=== PATIENT | male | born 2000 | race Caucasian/White ===

== ENCOUNTER 2021-10-26 10:57 | Emergency (ER) | payer OTHER, SELFPAY ==
[2021-10-26 11:07] VITALS: BP 143/91; PULSE 79; RESP 18; O2SAT 100; BMI 29.5
--- NOTE | 2021-10-26 11:11 | DI.RAD.S_ITS ---
PROCEDURE: XR FINGER LT MIN 2V INDICATIONS: Smashed left index finger TECHNIQUE: AP hand, 2 views of the 2nd digit acquired. COMPARISON: None. FINDINGS: Bones: There is a mildly comminuted fracture in the tuft of the 2nd distal phalanx. No suspicious bony lesions. Soft tissues: No radiopaque foreign bodies. No suspicious soft tissue calcifications. IMPRESSION: 1. Comminuted fracture of the 2nd distal phalanx. Dictated by: Marc Purcell M.D. on 10/26/2021 at 10:27 Approved by: Marc Purcell M.D. on 10/26/2021 at 10:35
[2021-10-26] MEDS: IBUPROFEN 400 MG TABLET 800 MG PO (13:38)
--- NOTE | 2021-10-26 14:14 | ED_ITS ---
HPI - Extremity Injury (Upper) <Vy Boyer PA-C - Last Filed: 10/26/21 14:21> General Chief Complaint: Extremity Injury, Upper Stated Complaint: LT FINGER POSS BROKEN Time Seen by Provider: 10/26/21 13:05 Source: patient Mode of arrival: Ambulatory Limitations: no limitations History of Present Illness HPI narrative: 21-year-old male with no reported past medical history presents to the ED status post a left index finger injury sustained yesterday. Patient states that he was chopping wood, when the wooden handle and the wood he was cutting crushed the tip of his left index finger. Patient denies numbness, tingling, weakness. Patient is able to range his finger. Patient's tetanus was 2 years ago. Patient endorses taking ibuprofen for pain control. Patient is right-hand domin ant. Related Data Allergies Allergy/AdvReac Type Severity Reaction Status Date / Time No Known Drug Allergies Allergy Verified 10/26/21 11:07 Review of Systems <Vy Boyer PA-C - Last Filed: 10/26/21 14:21> Review of Systems ROS Unobtainable: All systems reviewed & are unremarkable except as noted in HPI and below Constitutional Constitutional: Denies chills, Denies fatigue, Denies fever(s), Denies frequent falls, Denies lethargy and Denies weakness Eyes Eyes: Denies change in vision, Denies eye discharge, Denies irritation and Denies loss of vision ENT Ears, Nose, Mouth, and Throat: Denies change in voice, Denies dizziness, Denies neck pain, Denies sore throat and Denies throat swelling Cardiovascular Cardiovascular: Denies chest pain, Denies irregular heart rhythm, Denies lightheadedness, Denies palpitations, Denies dyspnea, Denies dyspnea on exertion and Denies orthopnea Respiratory Respiratory: Denies cough, Denies dyspnea, Denies dyspnea on exertion and Denies wheezing Gastrointestinal Gastrointestinal: Denies abdominal pain, Denies change in bowel habits, Denies diarrhea, Denies nausea and Denies vomiting Genitourinary Genitourinary: Denies hematuria, Denies flank pain, Denies urinary incontinence and Denies urinary urgency Musculoskeletal Musculoskeletal: Denies back pain, Denies muscle weakness, Denies neck pain, Denies numbness and Denies tingling Comments: Left index finger injury, pain. No numbness, tingling, weakness. Integumentary/Breasts Skin/Breast: Denies pruritus, Denies erythema, Denies rash and Denies wounds Neurologic Neurologic: Denies behavioral changes, Denies confusion, Denies dizziness, Denies frequent falls, Denies loss of vision, Denies numbness, Denies tingling and Denies weakness Psychiatric Psychiatric: Denies anxiety, Denies behavioral changes, Denies confusion, Denies depression, Denies homicidal ideation and Denies suicidal ideation Endocrine Endocrine: Denies fatigue, Denies flushing and Denies palpitations Hematologic/Lymphatic Hematologic/Lymphatic: Denies easy bruising Allergic/Immunologic Allergic/Immunologic: Denies urticaria, Denies throat swelling and Denies wheezing Patient History <Vy Boyer PA-C - Last Filed: 10/26/21 14:21> Social History Smoking Status: Current every day smoker Smoking Status: Current every day smoker tobacco type: cigarettes alcohol intake frequency: 3 or more drinks per day Substance Use Type: marijuana Exam <Vy Boyer PA-C - Last Filed: 10/26/21 14:21> Initial Vital Signs Initial Vital Signs: Vital Signs Pulse Rate 79 10/26/21 11:07 Respiratory Rate 18 10/26/21 11:07 Blood Pressure 143/91 H 10/26/21 11:07 Pulse Oximetry 100 10/26/21 11:07 Const General: cooperative, healthy appearing and comfortable [facility] Head: normal to inspection Eyes General: appearance normal, both eyes and all related structures Neck Neck: normal visual inspection Resp Effort & Inspection: normal respiratory effort Auscultation: clear to auscultation bilaterally Cardio Rate: regular rate Rhythm: regular rhythm Skin General: no rashes or lesions noted Neuro General: patient alert, patient awake and patient oriented x3 Extrem Other: Distal phalanx left index finger appears swollen, is tender to palpation. Volar aspect of the distal phalanx appears to have a small collection of blood under the skin. Skin is intact. Patient has full range of motion. Strength and sensation is intact. Patient is neurovascularly intact. Compartments are soft. <Isabel Roberson DO - Last Filed: 10/27/21 08:03> Initial Vital Signs Initial Vital Signs: Vital Signs Pulse Rate 79 10/26/21 11:07 Respiratory Rate 18 10/26/21 11:07 Blood Pressure 143/91 H 10/26/21 11:07 Pulse Oximetry 100 10/26/21 11:07 Course <Vy Boyer PA-C - Last Filed: 10/26/21 14:21> Orders Ordered: Discontinued Medications Ibuprofen (Ibuprofen 400 Mg Tablet) 800 mg PO NOW ONE Stop: 10/26/21 13:35 Last Admin: 10/26/21 13:38 Dose: 800 mg Documented by: FE Vital Signs Vital signs: Vital Signs - 8 hr 10/26/21 11:07 Pulse Rate 79 Respiratory Rate 18 Blood Pressure 143/91 H Pulse Oximetry 100 <Isabel Roberson DO - Last Filed: 10/27/21 08:03> Orders Ordered: Discontinued Medications Ibuprofen (Ibuprofen 400 Mg Tablet) 800 mg PO NOW ONE Stop: 10/26/21 13:35 Last Admin: 10/26/21 13:38 Dose: 800 mg Documented by: FE Vital Signs Vital signs: Vital Signs - 8 hr 10/26/21 11:07 Pulse Rate 79 Respiratory Rate 18 Blood Pressure 143/91 H Pulse Oximetry 100 MDM - Extremity Injury (Upper) <Vy Boyer PA-C - Last Filed: 10/26/21 14:21> Imaging Data Extremity x-ray #1: Radiologist's Impression: PROCEDURE:? XR FINGER LT MIN 2V ? INDICATIONS:? Smashed left index finger ? TECHNIQUE:? AP hand, 2 views of the 2nd digit acquired.? ? COMPARISON:? None. ? FINDINGS:? ? Bones:? There is a mildly comminuted fracture in the tuft of the 2nd distal phalanx.? No suspicious bony lesions.? ? Soft tissues:? No radiopaque foreign bodies.? No suspicious soft tissue calcifications.? ? IMPRESSION:? ? 1.? Comminuted fracture of the 2nd distal phalanx. ? ? Dictated by: Marc Purcell M.D. on 10/26/2021 at 10:27 ? ? Approved by: Marc Purcell M.D. on 10/26/2021 at 10:35 ? [facility] Narrative Medical decision making narrative: 21-year-old male with no reported past medical history presents to the ED status post a left index finger injury sustained yesterday. Concern for fracture/dislocation, hematoma. Will obtain x-ray. Will give ibuprofen for pain. Will reassess. X-ray shows comminuted fracture of tip of left index finger Dr. Stone from [facility] orthopedics was consulted, he recommends splinting, relieving pressure from the hematoma, follow-up in clinic. Small hematoma noted on volar aspect of left index finger, 18 gauge needle was used to aspirate the blood. Patient's compartments soft. Patient's finger put in a splint. Patient tolerated the procedure well. ED return precautions discussed with patient. Patient to follow-up with [facility]. Discharge Plan Departure Patient Disposition: Home Clinical Impression: Finger fracture, left Instructions: DI for Finger Fracture Activity Restrictions/Additional Instructions: You were evaluated in the ED today for a left index finger injury. Your x-ray showed a comminuted fracture of the tip of your left index finger. Week consulted Dr. Stone from [facility], who recommends a finger splint and follow-up in clinic. Please call [facility] at [phone] for an appointment. Return to the ED if you have worsening pain, swelling, finger feels tense, you experience numbness, tingling, weakness. Stand Alone Forms: Work Release Note <Isabel Roberson DO - Last Filed: 10/27/21 08:03> Cosign ED Attending Ann-Marie Attestation: I was immediately available in the department for consultation. Documentation has been reviewed.
== END 2021-10-26 14:12 | disposition home or self-care (01) ==
PROVIDERS: Emergency Provider Student in an Organized Health Care Education/Training Program
DX: S62.631A Displaced fracture of distal phalanx of left index finger, initial encounter for closed fracture (principal); S60.022A Contusion of left index finger without damage to nail, initial encounter; W22.8XXA Striking against or struck by other objects, initial encounter; Y93.89 Activity, other specified
CPT/HCPCS: 10160; 73140; 99283

== ENCOUNTER 2022-01-07 17:05 | Emergency (ER) | payer OTHER, SELFPAY ==
[2022-01-07 17:10] VITALS: BP 155/88; PULSE 70; RESP 18; TEMP 36.1; O2SAT 100; BMI 32.5
--- NOTE | 2022-01-07 17:29 | DI.RAD.S_ITS ---
PROCEDURE: XR SHOULDER RT MIN 2V INDICATIONS: complex axilla laceration TECHNIQUE: Three views of the shoulder were acquired. COMPARISON: None. FINDINGS: Bones: No acute fractures or dislocations. No suspicious bony lesions. Visualized ribs appear intact. Soft tissues: No suspicious soft tissue calcifications. No radiopaque foreign body. IMPRESSION: No acute osseous abnormality. If clinical suspicion and/or symptoms persist, additional imaging with repeat plain films, or advanced imaging (e.g. CT, MRI) may be helpful for further assessment. Dictated by: Juan Alberto Dong M.D. on 01/07/2022 at 17:57 Approved by: Juan Alberto Dong M.D. on 01/07/2022 at 17:57
--- NOTE | 2022-01-07 17:30 | ED_ITS ---
HPI - Wound/Laceration <SELINA Walker - Last Filed: 01/07/22 18:43> General Chief Complaint: Wound/Laceration Stated Complaint: RIGHT ARM PIT LACERATION Time Seen by Provider: 01/07/22 17:20 Source: patient Mode of arrival: Ambulatory History of Present Illness HPI narrative: 21-year-old male presents to the emergency department with right axilla laceration which occurred when he stepped on a box with a 2 x 4 on and a 2 x 4 came up and struck his right axilla causing a laceration 3 in long and 1 in deep. Bleeding is controlled, patient is not on any blood thinners, patient states his last tetanus is was in 2018, he went to [facility] this morning and provider attempted to suture wound close but a bandage after realizing more complicated and deeper wounds in at 1st. Patient was not given any medications other than 60 mg of Toradol IM. Patient tetanus UTD: Yes Related Data Previous Rx's Medication Instructions Recorded doxycycline hyclate 100 mg capsule 100 mg PO BID 7 Days #14 cap 01/07/22 Allergies Allergy/AdvReac Type Severity Reaction Status Date / Time No Known Drug Allergies Allergy Verified 01/07/22 17:10 Review of Systems <SELINA Walker - Last Filed: 01/07/22 18:43> Review of Systems Narrative: General: denies fever, chills, malaise, sweats, fatigue Head/Neck: denies headache, neck pain, dizziness Eyes: denies visual changes, eye pain Cardio: denies chest pain, palpitations, edema Respiratory: denies dyspnea, cough, orthopnea GI: denies abdominal pain, nausea, vomiting, or diarrhea : denies dysuria, hematuria, urinary retention, frequency or incontinence MSK: denies joint pain, muscle weakness Skin: denies rash, itching, skin lesions or other Neuro: denies numbness, tingling Patient History <SELINA Walker - Last Filed: 01/07/22 18:43> Social History Smoking Status: Current every day smoker Smoking Status: Current every day smoker tobacco type: cigarettes alcohol intake frequency: 3 or more drinks per day Substance Use Type: marijuana Exam <SELINA Walker - Last Filed: 01/07/22 18:43> Initial Vital Signs Initial Vital Signs: Vital Signs Temperature 96.9 F L 01/07/22 17:10 Pulse Rate 70 01/07/22 17:10 Respiratory Rate 18 01/07/22 17:10 Blood Pressure 155/88 H 01/07/22 17:10 Pulse Oximetry 100 01/07/22 17:10 Procedures <SELINA Walker - Last Filed: 01/07/22 18:43> Laceration Repair Laceration 1: Site: other (right axilla) Size (cm): 6 Description: flap, irregular and clean Depth: simple, single layer Local Anesthetic: lidocaine 1% and with bicarb Amount of anesthesia used (mL): 10 Pre-repair: wound explored, irrigated extensively and deep structures intact Skin layer closed with: nylon Size (cm): 5-0 Number of sutures: 10 Technique: simple, interrupted Subcutaneous layer closed with: vicryl Size: 4-0 Number of sutures: 2 Technique: simple, interrupted Course <SELINA Walker - Last Filed: 01/07/22 18:43> Orders Ordered: ED Orders 01/07/22 17:29 XR shoulder RT min 2V Stat Discontinued Medications Doxycycline Hyclate (Doxycycline Hyclate 100 Mg Tablet) 100 mg PO NOW ONE Stop: 01/07/22 17:27 Last Admin: 01/07/22 17:39 Dose: 100 mg Documented by: MARÍA Lidocaine/Sodium Bicarbonate (Lido 1%/Sod Bicarb 8.4% (10ml) 10 Ml Syringe) 10 ml INJ NOW ONE Stop: 01/07/22 17:27 Last Admin: 01/07/22 17:41 Dose: 10 ml Documented by: MARÍA Oxycodone/Acetaminophen (Oxycodone/Acetaminophen 5/325 Tablet) 1 tab PO NOW ONE Stop: 01/07/22 17:27 Last Admin: 01/07/22 17:39 Dose: 1 tab Documented by: MARÍA Vital Signs Vital signs: Vital Signs - 8 hr 01/07/22 17:10 01/07/22 18:31 Temperature 96.9 F L Pulse Rate 70 69 Respiratory Rate 18 14 Blood Pressure 155/88 H 163/100 H Pulse Oximetry 100 100 MDM - Wound/Laceration <Yolanda Alfredo, [facility] - Last Filed: 01/07/22 18:43> Imaging Data Extremity x-ray #1: Radiologist's Impression: PROCEDURE:? XR SHOULDER RT MIN 2V ? INDICATIONS:? complex axilla laceration ? TECHNIQUE:? Three views of the shoulder were acquired.? ? COMPARISON:? None. ? FINDINGS:? ? Bones:? No acute fractures or dislocations.? No suspicious bony lesions.? Visualized ribs appear intact.? ? Soft tissues:? No suspicious soft tissue calcifications.? No radiopaque foreign body. ? IMPRESSION:? No acute osseous abnormality.? If clinical suspicion and/or symptoms persist, additional imaging with repeat plain films, or advanced imaging (e.g. CT, MRI) may be helpful for further assessment. ? ? Dictated by: Juan Alberto Dong M.D. on 01/07/2022 at 17:57 ? ? Approved by: Juan Alberto Dong M.D. on 01/07/2022 at 17:57 ? [facility] Narrative Medical decision making narrative: 21-year-old male presents to the emergency department with complex laceration of his right axilla after he stepped on a box with a 2 x 4 on it and a 2 x 4 came up and struck him in the right axilla causing a 3 in by 1 in blunt laceration. Patient was seen at [facility] earlier today but suturing was abandoned due to providers fear of nerve involvement and complexity of wound. Patient's bleeding was controlled with a pressure dressing, no bleeding complications or ongoing bleeding. His wound is approximately 1 in deep, subcutaneous layer was pulled together with absorbable sutures, dermal layer was closed with simple interrupted sutures, no complications. Patient received a total of 10 sutures dermal sutures, 2 absorbable horizontal mattress. Patient was given doxycycline for infection prophylaxis due to depth of wound, nearby nerves and glands. Patient did not have any numbness or tingling, exam without any neuro deficit or signs of nerve/tendon involvement. Wound was cleansed with Hibiclens prior to repair. Patient understands to have his sutures removed in 7-10 days, keep the wound clean, apply antibiotic ointment if necessary or if appears infected. Patient is appropriate and amenable to discharge home. Vital signs are stable on repeat examination is unremarkable. Patient has been informed of results. Patient has been given strict return to ER precautions for any new or worsening symptoms. Patient understands to follow up closely with outpatient providers as instructed. Patient understands plan and agrees to discharge home. All questions and concerns answered at this time. Discharge Plan Departure Patient Disposition: Home Clinical Impression: Laceration of axilla, complicated Qualifiers: Encounter type: initial encounter Laterality: right Qualified Code(s): S41.111A - Laceration without foreign body of right upper arm, initial encounter Instructions: DI for Laceration Repair Activity Restrictions/Additional Instructions: *You have been diagnosed with a complex laceration of your right axilla. Please keep this clean, you may use soap and water but do not scrub on it, he can apply antibiotic ointment, please do not put any deodorant over the wound. Please take the antibiotics for 1 week for infection prophylaxis. Remember to drink plenty of water and eat food. If you have any redness, swelling, streaking, worsening pain, numbness or tingling, please come to the emergency department or go to an urgent care for another evaluation. This should start healing without any problem. Have your sutures removed in 7-10 days, more towards the 10 day raheem I presume being in the axilla. You have 10 outer sutures that need to be removed and 2 internal sutures that will absorb. Next time, shave your armpits. :) [id number]. *What to do: *Please continue to take your regular medications as directed. [x] New medication prescriptions sent to your pharmacy: [ [facility]] [ ] New medication written as a paper prescription [ ] No new medications given *Please follow up with your primary care provider in 2-3 days, call for an appointment. Let them know you were seen in the Emergency Department and that we ask that you be seen in follow up. We will electronically transmit a record of today's note if your PCP is in our system *If you do not have a primary care provider please contact [facility] Resource line at [phone]. They will ask some questions about your medical history and help get you set up with a doctor in the community. *Return to Emergency Department if you should have any new, worsening or concerning symptoms, such as [fever greater than 101F, chills, worsening pain, persistent vomiting or other bothersome symptoms] Prescriptions: New doxycycline hyclate 100 mg capsule 100 mg PO BID 7 Days Qty: 14 0RF Referrals: Kylee Garcia PA-C [Primary Care Provider] -
[2022-01-07] MEDS: OXYCODONE/ACETAMINOPHEN 5/325 TABLET 1 TAB PO (17:39)
[2022-01-07] MEDS: DOXYCYCLINE HYCLATE 100 MG TABLET PO (17:39)
[2022-01-07] MEDS: LIDO 1%/SOD BICARB 8.4% (10ML) 10 ML SYRINGE INJ (17:41)
[2022-01-07 18:31] VITALS: BP 163/100; PULSE 69; RESP 14; O2SAT 100
== END 2022-01-07 18:41 | disposition home or self-care (01) ==
PROVIDERS: Emergency Provider Nurse Practitioner Critical Care Medicine; PCP Physician Assistant
DX: S41.111A Laceration without foreign body of right upper arm, initial encounter (principal); W20.8XXA Other cause of strike by thrown, projected or falling object, initial encounter; Y99.0 Civilian activity done for income or pay
CPT/HCPCS: 12032; 73030; 99283